=== PATIENT | male | born 1990 | race African-American/Black ===

== ENCOUNTER 2022-10-20 05:05 | Emergency (ER) | payer MEDICAID ==
[~2022-10-20] VITALS: Ht 170.2 cm; Wt 85.0 kg
[2022-10-20 05:15] VITALS: BP 135/84
[2022-10-20] MEDS ORDERED: IBUP-2029 PO (06:44)
== END 2022-10-20 07:00 | disposition home or self-care (01) ==
LOC: ER 05:24
DX: R06.02 Shortness of breath (principal); R05.9 Cough, unspecified; Z21 Asymptomatic human immunodeficiency virus [HIV] infection status
CPT/HCPCS: 71045; 99283